=== PATIENT | female | born 1985 | race Caucasian/White ===

== ENCOUNTER 2022-02-24 11:35 | Emergency (ER) | payer MEDICAID ==
[~2022-02-24] VITALS: Ht 167.6 cm; Wt 70.3 kg
[2022-02-24 11:43] VITALS: BP 155/80
--- NOTE | 2022-02-24 12:15 | NUR ---
36YO FEMALE PT C/O SHARP 10/10 RECTAL PAIN XTODAY. PT REPORTS CONSTIPATION X3 DAYS DUE TO A NEW [facility] RX FOR RECENT L HAND FRACTURE SURGERY. PT STATES LAST BOWEL MOVEMENT WAS ON SUNDAY AND STATES TRYING RECTAL SUPPOSITORY THIS MORNING, HAD NO RELIEF. PT HAS NEW ONSET OF MILD LOWER ABDOMINAL PAIN. ABDOMEN NON DISTENDED OR TENDER, ACTIVE X4 . PT PRESENTS WITH VISIBLE HEMORRHIOD. PT REPORTS HEMORRHOID "POPS OUT MORE AND PAINFUL " SINCE THIS MORNING. PT HAS HX OF HEMORRHOIDS AND STATES HAVING REMOVAL SURGERY IN 2018. DENIES N/V/D OR CHEST PAIN AT THIS TIME. PT UNABLE TO SIT PROPERLY DUE TO PAIN. PT AAOX4, NO VISIBLE DISTRESS, RESPIRATIONS EVEN AND UNLABORED. PT LAYING ON SIDE PER COMFORT. NKA HX: HEMORRHOIDS
--- NOTE | 2022-02-24 13:48 | NUR ---
Female City Council Member accompanied female patient for Rectal Exam.
[2022-02-24] MEDS ORDERED: DOCU-299 PO (13:53)
[2022-02-24] MEDS ORDERED: MIRABULK PO (13:53)
[2022-02-24] MEDS ORDERED: PHEN51CR12 RC (13:53)
--- NOTE | 2022-02-24 14:00 | NUR ---
Patient discharged with v/s stable. Written and verbal after care instructions FOR CONSTIPATION AND HEMORRHOIDS given and explained. Patient alert, oriented and verbalized understanding of instructions. Ambulatory with steady gait. All questions addressed prior to discharge. ID band removed. Patient advised to follow up with PMD. Rx of COLACE, MIRALAX AND EQL HEMORRHOIDAL CREAM given. Opportunity to ask questions provided and answered.
[2022-02-24 14:01] VITALS: BP 134/64
--- NOTE | 2022-02-24 14:04 | NUR ---
The patient's care was reviewed and supervised by ED Agency Nurse 7, RN, RN.
== END 2022-02-24 14:01 | disposition home or self-care (01) ==
LOC: MED 11:35
DX: K64.4 Residual hemorrhoidal skin tags (principal); K59.00 Constipation, unspecified; Z98.890 Other specified postprocedural states; Z79.899 Other long term (current) drug therapy; Z90.49 Acquired absence of other specified parts of digestive tract
CPT/HCPCS: 99282